=== PATIENT | female | born 1970 | race Caucasian/White ===

== ENCOUNTER → 2016-10-07 | Outpatient (CLI) | payer BC ==
--- NOTE | 2016-10-07 10:59 | RADIOLOGY REPORT (SQ) ---
EXAM DESCRIPTION: ANKLE RIGHT COMPLETE COMPLETED DATE/TIME: 10/07/2016 10:46 am REASON FOR STUDY: PAIN IN RIGHT ANKLE AND JOINTS OF RIGHT FOOT M25.571 PAIN IN RIGHT ANKLE AND JOIN TS OF RIGHT FOOT COMPARISON: None. NUMBER OF VIEWS: Three views. TECHNIQUE: AP, lateral, and oblique radiographic images acquired of the right ankle. LIMITATIONS: None. FINDINGS: MINERALIZATION: Normal. BONES: No acute fracture or dislocation. There are 2 long screws in the medial malleolus and there i s a compression plate on the distal fibula. JOINTS: There is subchondral sclerosis in the tibiotalar joint. SOFT TISSUES: No soft tissue swelling. No foreign body. OTHER: No other significant finding. 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 TECHNICAL DOCUMENTATION: JOB ID: [id number] [employer]- All Rights Reserved
--- NOTE | 2016-10-07 11:00 | RADIOLOGY REPORT (SQ) ---
EXAM DESCRIPTION: FOOT RIGHT COMPLETE COMPLETED DATE/TIME: 10/07/2016 10:46 am REASON FOR STUDY: PAIN IN RIGHT ANKLE AND JOINTS OF RIGHT FOOT M25.571 PAIN IN RIGHT ANKLE AND JOIN TS OF RIGHT FOOT COMPARISON: None. NUMBER OF VIEWS: Three views. TECHNIQUE: AP, lateral and oblique radiographic images acquired of the right foot. LIMITATIONS: None. FINDINGS: MINERALIZATION: Normal. BONES: No acute fracture or dislocation. No worrisome bone lesions. JOINTS: There is mild hallux valgus. Once again mild posttraumatic degenerative changes seen in the tibiotalar joint. SOFT TISSUES: No soft tissue swelling. No foreign body. OTHER: No other significant finding. IMPRESSION: Mild hallux valgus. Tibiotalar degenerative changes. No acute abnormality. TECHNICAL DOCUMENTATION: JOB ID: [id number] [employer]- All Rights Reserved
== END ==
LOC: OD 09:23
PROVIDERS: ATTEND Physician Assistant
DX: M25.571 Pain in right ankle and joints of right foot (principal)

== ENCOUNTER 2017-01-06 15:25 | Observation (INO) | payer BC ==
--- NOTE | 2017-01-06 16:08 | ER Document Report ---
ED General - General Chief Complaint: Numbness of Face Stated Complaint: FACIAL NUMBNESS Time Seen by Provider: 01/06/17 15:42 Mode of Arrival: Ambulatory Information source: Patient Notes: 46-year-old female with history of 7 previous TIAs 1 CVA presents with sudden left facial droop and numbness sensation. Patient denies any extremity weakness but admits to numbness in the left hand. TRAVEL OUTSIDE OF THE [place] IN LAST 30 DAYS: No - HPI Onset: Just prior to arrival Onset/Duration: Sudden Quality of pain: No pain Severity: Mild Pain Level: Denies Associated symptoms: Weakness, Other Exacerbated by: Denies Relieved by: Denies Similar symptoms previously: Yes Recently seen / treated by doctor: Yes - Related Data Allergies/Adverse Reactions: nitroglycerin [Nitroglycerin] Allergy (Intermediate, Verified 01/06/17 15:32) promethazine HCl [From Phenergan] Allergy (Intermediate, Verified 01/06/17 15:32 ) pseudoephedrine HCl [From Sudafed] Allergy (Intermediate, Verified 01/06/17 15: 32) Home Medications: Current Home Medications Fenofibrate 160 mg PO DAILY 01/06/17 [History] Gabapentin [Neurontin] 600 mg PO PRN PRN 01/06/17 [History] Ibuprofen 800 mg PO PRN PRN 01/06/17 [History] L.acidoph,Paracasei, B.lactis [Probiotic] 1 each PO DAILY 01/06/17 [History] Liraglutide [Victoza 2-Michele] 1.8 mg SQ DAILY 01/06/17 [History] Past Medical History - Social History Smoking Status: Never Smoker Cigarette use (# per day): No Chew tobacco use (# tins/day): No Smoking Education Provided: No Family History: Reviewed & Not Pertinent Endocrine Medical History: Reports: Hx Diabetes Mellitus Type 2 Renal/ Medical History: Denies: Hx Peritoneal Dialysis GI Medical History: Reports: Hx Gastroesophageal Reflux Disease, Hx Irritable Bowel. Denies: Hx Crohn's Disease, Hx Diverticulitis, Hx Ulcerative Colitis Past Surgical History: Reports: Hx Bowel Surgery - Hernia repair, endoscopic procedures to diagnose endometriosis, Hx Cholecystectomy, Hx Genitourinary Surgery, Hx Hysterectomy, Hx Orthopedic Surgery - spinal fusion - Immunizations Immunizations up to date: Yes Hx Diphtheria, Pertussis, Tetanus Vaccination: Yes Review of Systems - Review of Systems Notes: REVIEW OF SYSTEMS: CONSTITUTIONAL : Denies fever, chills, or sweats. Denies recent illness. EENT: Admits to left facial droop CARDIOVASCULAR: Denies chest pain. Denies palpitations or racing or irregular heart beat. Denies ankle edema. RESPIRATORY: Denies cough, cold, or chest congestion. Denies shortness of breath, difficulty breathing, or wheezing. GASTROINTESTINAL: Denies abdominal pain or distention. Denies nausea, vomiting , or diarrhea. Denies blood in vomitus, stools, or per rectum. Denies black, tarry stools. Denies constipation. GENITOURINARY: Denies difficulty urinating, painful urination, burning, frequency, blood in urine, or discharge. FEMALE GENITOURINARY: Denies vaginal bleeding, heavy or abnormal periods, irregular periods. Denies vaginal discharge or odor. MUSCULOSKELETAL: Denies back or neck pain or stiffness. Denies joint pain or swelling. SKIN: Denies rash, lesions or sores. HEMATOLOGIC : Denies easy bruising or bleeding. LYMPHATIC: Denies swollen, enlarged glands. NEUROLOGICAL: Admits to numbness paresthesia PSYCHIATRIC: Denies anxiety or stress. Denies depression, suicidal ideation, or homicidal ideation. ALL OTHER SYSTEMS REVIEWED AND NEGATIVE. PHYSICAL EXAMINATION: GENERAL: Well-appearing, well-nourished and in no acute distress. HEAD: Atraumatic, normocephalic. EYES: Pupils equal round and reactive to light, extraocular movements intact, conjunctiva are normal. ENT: Nares patent, oropharynx clear without exudates. Moist mucous membranes. NECK: Normal range of motion, supple without lymphadenopathy LUNGS: Breath sounds clear to auscultation bilaterally and equal. No wheezes rales or rhonchi. HEART: Regular rate and rhythm without murmurs ABDOMEN: Soft, nontender, nondistended abdomen. No guarding, no rebound. No masses appreciated. Female : deferred Musculoskeletal: Normal range of motion, no pitting or edema. No cyanosis. NEUROLOGICAL: Cranial nerves grossly intact. Normal speech, normal gait. Normal sensory, motor exams NIH score 1 PSYCH: Normal mood, normal affect. SKIN: Warm, Dry, normal turgor, no rashes or lesions noted. Dictation was performed using [employer] recognition software Physical Exam - Vital signs Vitals: Temp Pulse Resp BP Pulse Ox 99.0 F 125 H 21 H 164/95 H 100 01/06/17 15:27 01/06/17 15:27 01/06/17 15:27 01/06/17 15:27 01/06/17 15:27 Course - Re-evaluation Re-evalutation: 01/06/17 16:08 Patient has an NIH score 1 new subjective paresthesia, she does not meet criteria for thrombolytics as her symptoms have improved 01/06/17 16:58 Patient will be observed in the hospital given her symptoms extensive history - Vital Signs Vital signs: Temp Pulse Resp BP Pulse Ox 97.6 F 97 16 149/99 H 99 01/06/17 16:15 01/06/17 16:33 01/06/17 16:33 01/06/17 16:33 01/06/17 16:33 - Laboratory Result Diagrams: 01/06/17 16:00 01/06/17 16:00 Laboratory results interpreted by me: 01/06/17 16:00 Glucose 136 H Calcium 10.5 H - Diagnostic Test Radiology reviewed: Image reviewed, Reports reviewed - EKG Interpretation by Wy EKG shows normal: Sinus rhythm, Otis, Intervals, QRS Complexes Rate: Tachycardia Discharge - Discharge Clinical Impression: Left facial numbness Condition: Stable Disposition: ADMITTED OBSERVATION Admitting Provider: Hospitalist Unit Admitted: Telemetry
--- NOTE | 2017-01-06 16:14 | RADIOLOGY REPORT (SQ) ---
EXAM DESCRIPTION: CT HEAD WITHOUT COMPLETED DATE/TIME: 01/06/2017 3:52 pm REASON FOR STUDY: left facial droop COMPARISON: MRI brain 02/20/2015 CT brain 02/20/2015 TECHNIQUE: Axial images acquired through the brain without intravenous contrast. Images reviewed wi th bone, brain and subdural windows. Images stored on PACS. All CT scanners at this facility use dose modulation, iterative reconstruction, and/or weight based d osing when appropriate to reduce radiation dose to as low as reasonably achievable (ALARA). [facility]: Dose Right [facility]: CareDose [facility]: Dose Right [facility]: Teradose 4D [facility]: Smart Genomas RADIATION DOSE: Up-to-date CT equipment and radiation dose reduction techniques were employed. CTDIv ol: 64.6 mGy. DLP: 1034 mGy-cm. mGy. LIMITATIONS: None. FINDINGS: VENTRICLES: Normal size and contour. CEREBRUM: No masses. No hemorrhage. No midline shift. No evidence for acute infarction. Normal gra y/white matter differentiation. No areas of low density in the white matter. CEREBELLUM: No masses. No hemorrhage. No alteration of density. No evidence for acute infarction. EXTRAAXIAL SPACES: No fluid collections. No masses. ORBITS AND GLOBE: No intra- or extraconal masses. Normal contour of globe without masses. CALVARIUM: No fracture. PARANASAL SINUSES: No fluid or mucosal thickening. SOFT TISSUES: No mass or hematoma. OTHER: No other significant finding. IMPRESSION: NORMAL BRAIN CT WITHOUT CONTRAST. EVIDENCE OF ACUTE STROKE: NO. COMMENT: Pertinent findings on the imaging study reported as a CRITICAL RESULT to IMANI RIBEIRO DO at16:04 on 01/06/2017. Category of Critical Result: CT code stroke Quality ID # [id number]: Final reports with documentation of one or more dose reduction techniques (e.g., Au tomated exposure control, adjustment of the mA and/or kV according to patient size, use of iterative reconstruction technique) TECHNICAL DOCUMENTATION: JOB ID: [id number]- All Rights Reserved
[2017-01-06 16:15] LABS: ABSOLUTE LYMPHOCYTES (AUTO) 1.7 10^3/uL (0.5-4.7); ABSOLUTE MONOCYTES (AUTO) 0.4 10^3/uL (0.1-1.4); ABSOLUTE NEUT (AUTO) 3.1 10^3/uL (1.7-8.2); BASOPHILS % (AUTO) 0.3 % (0-2); EOSINOPHILS % (AUTO) 0.5 % (0-6); HEMATOCRIT 41.4 % (36.0-47.0); HEMOGLOBIN 13.8 g/dL (12.0-15.5); LYMPHOCYTES % (AUTO) 32.6 % (13-45); MEAN CORPUSCULAR HEMOGLOBIN 28.7 pg (27.0-33.4); MEAN CORPUSCULAR HGB CONC 33.3 g/dL (32.0-36.0); MEAN CORPUSCULAR VOLUME 86 fl (80-97); MONOCYTES % (AUTO) 7.5 % (3-13); PROTHROMBIN TIME 12.8 SEC (11.4-15.4); RED CELL DISTRIBUTION WIDTH 13.1 % (11.5-14.0); SEGMENTED NEUTROPHILS % (AUTO) 59.1 % (42-78); WHITE BLOOD COUNT 5.3 10^3/uL (4.0-10.5)
[2017-01-06 16:16] LABS: PARTIAL THROMBOPLASTIN TIME 29.6 SEC (23.5-35.8)
--- NOTE | 2017-01-06 16:24 | RADIOLOGY REPORT (SQ) ---
EXAM DESCRIPTION: CHEST SINGLE VIEW COMPLETED DATE/TIME: 01/06/2017 4:06 pm REASON FOR STUDY: left facial droop COMPARISON: 02/20/2015 EXAM PARAMETERS: NUMBER OF VIEWS: One view. TECHNIQUE: Single frontal radiographic view of the chest acquired. RADIATION DOSE: NA LIMITATIONS: None. FINDINGS: LUNGS AND PLEURA: No opacities, masses or pneumothorax. No pleural effusion. MEDIASTINUM AND HILAR STRUCTURES: No masses. Contour normal. HEART AND VASCULAR STRUCTURES: Heart normal in size. Normal vasculature. BONES: No acute findings. HARDWARE: None in the chest. OTHER: No other significant finding. IMPRESSION: NO ACUTE RADIOGRAPHIC FINDING IN THE CHEST. TECHNICAL DOCUMENTATION: JOB ID: [id number]
[2017-01-06 16:30] LABS: ALANINE AMINOTRANSFERASE 30 U/L (9-52); ALBUMIN 4.4 g/dL (3.5-5.0); ALKALINE PHOSPHATASE 76 U/L (38-126); ANION GAP 14 (5-19); ASPARTATE AMINO TRANSFERASE 24 U/L (14-36); BILIRUBIN,DIRECT 0.3 mg/dL (0.0-0.4); BILIRUBIN,TOTAL 0.4 mg/dL (0.2-1.3); BLOOD UREA NITROGEN 10 mg/dL (7-20); CALCIUM 10.5 mg/dL (8.4-10.2); CARBON DIOXIDE 28 mmol/L (22-30); CHLORIDE 102 mmol/L (98-107); CREATINE KINASE 72 U/L (30-135); CREATININE RESULT 0.63 mg/dL (0.52-1.25); GLUCOSE 136 mg/dL (75-110); POTASSIUM 4.1 mmol/L (3.6-5.0); SODIUM 143.7 mmol/L (137-145); TOTAL PROTEIN 7.4 g/dL (6.3-8.2)
[2017-01-06 16:38] LABS: CREATINE KINASE MB 1.24 ng/mL (<4.55)
[2017-01-06 16:40] LABS: TROPONIN I < 0.012 ng/mL
[2017-01-06] MEDS ORDERED: ONDANSETRON 4 MG TAB.RAPDIS PO PRN (17:26)
[2017-01-06] MEDS ORDERED: ACETAMINOPHEN 325 MG TABLET PO PRN (17:26)
[2017-01-06] MEDS ORDERED: DEXTROSE 50%-WATER 25 GM/50 ML DISP.SYRIN IV PRN ×2 (17:31)
[2017-01-06] MEDS ORDERED: DEXTROSE 40% GEL 15 GM TUBE PO PRN ×2 (17:31)
[2017-01-06] MEDS ORDERED: INSULIN LISPRO 100 UNIT/ML 3 ML VIAL SUBCUT PRN (17:31)
[2017-01-06] MEDS ORDERED: GLUCAGON,HUMAN RECOMB 1 MG INJ IM PRN (17:31)
[2017-01-06] MEDS ORDERED: (PENDING PHARMACY ID) (Oxycodone Hcl/Acetaminophen [Percocet 10-325 Mg Tablet] 1 EACH) PO PRN (17:31)
--- NOTE | 2017-01-06 17:40 | PDOC H&P ---
History of Present Illness Admission Date/PCP: 01/06/17 17:03 Patient complains of: Left facial numbness History of Present Illness: TWAN MCCLURE is a 46 year old female who reports having had previous TIAs and a CVA who presents with left-sided facial numbness that started today. She reports that her entire left side of her face is numb but denies any pain. She denies any change in her vision denies any weakness in her arms or legs. She denies any slurred speech or dysarthria. Denies any dysphasia. The patient is a diabetic but has not taken any aspirin prior to today. The patient does have a history of hypertriglyceridemia. Patient however does not smoke. The patient denies any fevers or chills. Denies any visual changes. Patient had a head CT emergency room which shows no acute event. Patient is admitted for workup of TIA. Past Medical History Cardiac Medical History: Reports: Hyperlipidema Pulmonary Medical History: Reports: None EENT Medical History: Reports: None Neurological Medical History: Reports: Ischemic CVA Endocrine Medical History: Reports: Diabetes Mellitus Type 2 Renal/ Medical History: Reports: None Malignancy Medical History: Reports: Cervical Cancer GI Medical History: Reports: Gastroesophageal Reflux Disease, Other - Irritable bowel disease Musculoskeltal Medical History: Reports: Other - History of lumbar spine fusion Skin Medical History: Reports: None Psychiatric Medical History: Reports: None Traumatic Medical History: Reports: None Hematology: Reports: None Infectious Medical History: Reports: None Past Surgical History Past Surgical History: Reports: Cholecystectomy, Hysterectomy, Orthopedic Surgery - spinal fusion, Tubal Ligation Social History Information Source: Patient Lives with: Family Smoking Status: Never Smoker Frequency of Alcohol Use: None Hx Recreational Drug Use: No Drugs: None Hx Prescription Drug Abuse: No - Advance Directive Resuscitation Status: Full Code Surrogate healthcare decision maker:: Her Family History Family History: Mother is 60 and alive. she has peripheral vascular disease and has also had colon cancer. Father is 69 and alive. He has a history of alcohol abuse. Parental Family History Reviewed: Yes Children Family History Reviewed: No Sibling(s) Family History Reviewed.: No Medication/Allergy Home Medications: Metformin HCl [Glucophage 500 Mg Tablet] 500 mg PO BID 02/24/13 Oxycodone HCl/Acetaminophen [Percocet 10-325 Mg Tablet] 1 each PO PRN PRN #10 tablet 02/24/13 Fenofibrate 160 mg PO DAILY 01/06/17 Gabapentin [Neurontin] 600 mg PO PRN PRN 01/06/17 Ibuprofen 800 mg PO PRN PRN 01/06/17 L.acidoph,Paracasei, B.lactis [Probiotic] 1 each PO DAILY 01/06/17 Liraglutide [Victoza 2-Michele] 1.8 mg SQ DAILY 01/06/17 Allergies/Adverse Reactions: nitroglycerin [Nitroglycerin] Allergy (Intermediate, Verified 01/06/17 15:32) promethazine HCl [From Phenergan] Allergy (Intermediate, Verified 01/06/17 15:32 ) pseudoephedrine HCl [From Sudafed] Allergy (Intermediate, Verified 01/06/17 15: 32) Review of Systems Constitutional: ABSENT: chills, fever(s), headache(s), weight gain, weight loss Eyes: ABSENT: visual disturbances Ears: ABSENT: hearing changes Cardiovascular: ABSENT: chest pain, dyspnea on exertion, edema, orthropnea, palpitations Respiratory: ABSENT: cough, hemoptysis Gastrointestinal: PRESENT: constipation. ABSENT: abdominal pain, diarrhea, hematemesis, hematochezia, nausea, vomiting Genitourinary: ABSENT: dysuria, hematuria Musculoskeletal: PRESENT: back pain Integumentary: ABSENT: rash, wounds Neurological: PRESENT: as per HPI Psychiatric: ABSENT: anxiety, depression Endocrine: ABSENT: cold intolerance, heat intolerance, polydipsia, polyuria Hematologic/Lymphatic: ABSENT: easy bleeding, easy bruising Physical Exam Vital Signs: Temp Pulse Resp BP Pulse Ox 97.6 F 97 16 149/99 H 99 01/06/17 16:15 01/06/17 16:33 01/06/17 16:33 01/06/17 16:33 01/06/17 16:33 General appearance: PRESENT: no acute distress, obese Head exam: PRESENT: atraumatic, normocephalic Eye exam: PRESENT: conjunctiva pink, EOMI, PERRLA. ABSENT: scleral icterus Ear exam: PRESENT: normal external ear exam Mouth exam: PRESENT: moist, tongue midline Neck exam: ABSENT: carotid bruit, JVD, lymphadenopathy, thyromegaly Respiratory exam: PRESENT: clear to auscultation jameel. ABSENT: rales, rhonchi, wheezes Cardiovascular exam: PRESENT: RRR. ABSENT: diastolic murmur, rubs, systolic murmur Pulses: PRESENT: normal dorsalis pedis pul Vascular exam: PRESENT: normal capillary refill GI/Abdominal exam: PRESENT: normal bowel sounds, soft. ABSENT: distended, guarding, mass, organolmegaly, rebound, tenderness Rectal exam: PRESENT: deferred Extremities exam: ABSENT: calf tenderness, clubbing, pedal edema Neurological exam: PRESENT: alert, awake, oriented to person, oriented to place , oriented to time, oriented to situation. ABSENT: CN II-XII grossly intact - Patient has decreased light touch on the left face., motor sensory deficit Psychiatric exam: PRESENT: appropriate affect Skin exam: PRESENT: dry, intact, warm. ABSENT: cyanosis, rash Results Impressions: Chest X-Ray 01/06/17 15:42 IMPRESSION: NO ACUTE RADIOGRAPHIC FINDING IN THE CHEST. Head CT 01/06/17 15:42 IMPRESSION: NORMAL BRAIN CT WITHOUT CONTRAST. EVIDENCE OF ACUTE STROKE: NO. Assessment & Plan - Diagnosis (1) TIA (transient ischemic attack) Is this a current diagnosis for this admission?: Yes Plan: Patient reports having previous TIA symptoms as well as a CVA by her report. Will get an MRI and carotid Dopplers. The patient has not been taking aspirin and we will start on that. We will also add on a statin. She has been on fenofibrate because of her hypertriglyceridemia. Will also do serial neurological exams. (2) Diabetes mellitus Is this a current diagnosis for this admission?: Yes Plan: We will hold her oral agents and cover with sliding scale insulin. (3) Hyperlipidemia Is this a current diagnosis for this admission?: Yes Plan: Continue with fenofibrate. Will add on a statin. (4) Gastroesophageal reflux disease Is this a current diagnosis for this admission?: Yes (5) Irritable bowel syndrome Is this a current diagnosis for this admission?: Yes - Time Time Spent: 50 to 70 Minutes - Plan Summary Plan Summary: We will admit as an observation as I anticipate this require less than a 2 midnight hospital stay.
--- NOTE | 2017-01-06 18:50 | EKG REPORT ---
SEVERITY:- OTHERWISE NORMAL ECG - SINUS TACHYCARDIA BORDERLINE LEFT AXIS DEVIATION : Confirmed by: Joseph Dominguez MD 06-Jan-2017 18:49:13
[2017-01-06] MEDS ORDERED: GABAPENTIN 300 MG CAPSULE PO PRN (19:28)
[2017-01-06] MEDS ORDERED: INFLUENZA ADLT QUAD (36MOS+) 2017-18 VAC 0.5 ML SYR IM PRN (20:16)
[2017-01-06] MEDS: OXYCODONE-ACETAMINOPHEN 5-325 MG TABLET PO PRN (21:20)
[2017-01-06] MEDS: IBUPROFEN 800 MG TABLET PO PRN (21:20)
[2017-01-06] MEDS: OXYCODONE HCL IR 5 MG TABLET PO PRN (21:21)
[2017-01-06] MEDS ORDERED: ATORVASTATIN CALCIUM 40 MG TABLET PO SCH (22:00)
--- NOTE | 2017-01-06 22:35 | RADIOLOGY REPORT (SQ) ---
EXAM DESCRIPTION: MRI HEAD WITHOUT COMPLETED DATE/TIME: 01/06/2017 9:01 pm REASON FOR STUDY: acute neurologic syndrome COMPARISON: None. TECHNIQUE: Multiplanar imaging includes non-contrasted T1, T2, FLAIR, and diffusion with ADC map seq uences. Images stored on PACS. LIMITATIONS: None. FINDINGS: ANATOMY: No anomalies. Normal vascular flow voids. Pituitary fossa normal. CSF SPACES: Normal in size and contour. No hemorrhage. CEREBRUM: Sulci and gyri normal in size and contour. Age-appropriate white matter signal on FLAIR im aging. No evidence of hemorrhage, mass, or extraaxial fluid collection. POSTERIOR FOSSA: No signal alteration. No hemorrhage. No edema, masses or mass effect. Internal gigi tory canals, cerebello-pontine angles, mastoids normal. DIFFUSION IMAGING: Negative for acute or sub-acute infarction. ORBITS: No masses. Globes normal. PARANASAL SINUSES: No fluid levels. Minimal mucosal thickening in the left maxillary sinus. . OTHER: No other significant finding. IMPRESSION: Negative for acute or sub-acute infarction. Age-appropriate exam. EVIDENCE OF ACUTE STROKE: NO. TECHNICAL DOCUMENTATION: JOB ID: [id number] [employer]- All Rights Reserved
[2017-01-07] MEDS ORDERED: (PENDING PHARMACY ID) (Liraglutide [Victoza 2-Pak] 1.8 MG) SQ SCH (10:00)
[2017-01-07] MEDS ORDERED: ASPIRIN 325 MG TABLET, ENT COATED PO SCH (10:00)
[2017-01-07] MEDS ORDERED: (PENDING PHARMACY ID) (Fenofibrate [Fenofibrate] 160 MG) PO SCH (10:00)
[2017-01-07] MEDS ORDERED: LACTOBACILLUS ACIDOPHILUS 250 MG TAB PO SCH (10:00)
[2017-01-07] MEDS ORDERED: (PENDING PHARMACY ID) (L.Acidoph,Paracasei, B.Lactis [Probiotic] 1 EACH) PO SCH (10:00)
[2017-01-07] MEDS ORDERED: FENOFIBRATE NANOCRYSTALLIZED 145 MG TABLET PO SCH (10:00)
[2017-01-07] MEDS: IBUPROFEN 800 MG TABLET PO PRN (10:30)
[2017-01-07] MEDS: OXYCODONE-ACETAMINOPHEN 5-325 MG TABLET PO PRN (10:30)
[2017-01-07] MEDS: OXYCODONE HCL IR 5 MG TABLET PO PRN (10:35)
[2017-01-07] MEDS ORDERED: ONDANSETRON 4 MG TAB.RAPDIS PO PRN (11:00)
[2017-01-07] MEDS ORDERED: INFLUENZA ADLT QUAD (36MOS+) 2017-18 VAC 0.5 ML SYR IM PRN (11:00)
--- NOTE | 2017-01-07 11:53 | RADIOLOGY REPORT (SQ) ---
EXAM DESCRIPTION: CAROTID DOPPLER COMPLETED DATE/TIME: 01/07/2017 10:43 am REASON FOR STUDY: acute neurologic syndrome COMPARISON: MRI brain 01/06/2017, CT brain 01/06/2017 TECHNIQUE: Grayscale ultrasound, Doppler velocity and spectra, and color Doppler images acquired of the extra-cranial carotid and vertebral arteries. Images stored on PACS. LIMITATIONS: None. FINDINGS: RIGHT CAROTID CCA Velocities: Within normal limits. ICA Velocities Peak systolic 0.59 m/s. End diastolic 0.20 m/s. Proximal ICA/CCA peak systolic ratio 1.1. Spectra normal. No significant plaque. LEFT CAROTID CCA Velocities: Within normal limits. ICA Velocities Peak systolic 0.85 m/s. End diastolic 0.23 m/s. Proximal ICA/CCA peak systolic ratio 0.9. Spectra normal. No significant plaque. VERTEBRAL ARTERIES: Antegrade flow. Normal waveforms. SUBCLAVIAN ARTERIES: Not evaluated OTHER: No other significant finding. IMPRESSION: NO HEMODYNAMICALLY SIGNIFICANT STENOSIS. COMMENT: Quality ID #[id number]: Velocity criteria are extrapolated from the diameter data as defined by t he Society of Radiologists in Ultrasound Consensus Conference. Radiology 2003: 229; 340-346. TECHNICAL DOCUMENTATION: JOB ID: [id number] [employer]- All Rights Reserved
[2017-01-07 12:17] VITALS: BP 145/89
--- NOTE | 2017-01-07 13:27 | PDOC DISCHARGE SUMMARY ---
General - Admit/Disc Date/PCP Admission Date/Primary Care Provider: 01/06/17 17:26 Discharge Date: 01/07/17 - Discharge Diagnosis (1) TIA (transient ischemic attack) Is this a current diagnosis for this admission?: Yes Summary: Normal MRI and normal carotid Doppler. Patient is being started on aspirin. She was not put on Lipitor because she is already on fenofibrate for hypertriglyceridemia. (2) Diabetes mellitus Is this a current diagnosis for this admission?: Yes (3) Hyperlipidemia Is this a current diagnosis for this admission?: Yes (4) Gastroesophageal reflux disease Is this a current diagnosis for this admission?: Yes (5) Irritable bowel syndrome Is this a current diagnosis for this admission?: Yes - Additional Information Resuscitation Status: Full Code Discharge Diet: Diabetic Discharge Activity: Activity As Tolerated Home Medications: Fenofibrate 160 mg PO DAILY 01/06/17 Fexofenadine HCl [Luiza] 60 mg PO DAILY 01/06/17 Fluticasone Propionate [Flonase Allergy Relief] 2 spray NASL DAILYP PRN Gabapentin [Neurontin] 600 mg PO Q6HP PRN 01/06/17 Ibuprofen 800 mg PO Q8HP PRN 01/06/17 L.acidoph,Paracasei, B.lactis [Probiotic] 1 each PO DAILY 01/06/17 Liraglutide [Victoza 2-Michele] 1.8 mg SQ DAILY 01/06/17 Metformin HCl [Metformin HCl ER] 1,000 mg PO Q12 01/06/17 Oxycodone HCl/Acetaminophen [Percocet 10-325 mg Tablet] 1 tab PO Q6HP PRN Phentermine HCl [Adipex-P] 37.5 mg PO DAILY 01/06/17 Psyllium Husk [Metamucil] 0.52 gm PO DAILY 01/06/17 Aspirin [Ecotrin 325 mg EC Tablet] 325 mg PO DAILY tabec 01/07/17 Flu Vacc [id number] 36Mos Up/Pf [Fluzone Adlt Quad [id number] Vac 0.5 ml Syr] 0.5 ml IM .DISCHARGE PRN disp.syrin 01/07/17 History of Present Illness History of Present Illness: TWAN MCCLURE is a 46 year old female who reports having had previous TIAs and a CVA who presents with left-sided facial numbness that started today. She reports that her entire left side of her face is numb but denies any pain. She denies any change in her vision denies any weakness in her arms or legs. She denies any slurred speech or dysarthria. Denies any dysphasia. The patient is a diabetic but has not taken any aspirin prior to today. The patient does have a history of hypertriglyceridemia. Patient however does not smoke. The patient denies any fevers or chills. Denies any visual changes. Patient had a head CT emergency room which shows no acute event. Patient is admitted for workup of TIA. Hospital Course Hospital Course: 46-year-old female who presented with left facial numbness suspicious for a TIA. The patient had not been taking aspirin prior to admission. The patient had a head CT that was unremarkable. She was admitted and monitored on telemetry. She had no cardiac arrhythmias. Brain MRI showed no acute event. Carotid Dopplers also were normal. Given the fact that she did not have any cardiac arrhythmias echocardiogram was not obtained. Patient had been started on aspirin and will be sent home on aspirin as she has had complete resolution of her symptoms. Patient will follow up with her primary care in 1-2 weeks. She was already taking fenofibrate for her hypertriglyceridemia and she was not started on a statin because of that. Physical Exam Vital Signs: Temp Pulse Resp BP Pulse Ox 97.7 F 98 20 145/89 H 98 01/07/17 12:37 01/07/17 12:37 01/07/17 12:37 01/07/17 12:00 01/07/17 12:37 Intake & Output 01/06/17 01/07/17 01/08/17 06:59 06:59 06:59 Intake Total 1545 Balance 1545 Weight 93.3 kg General appearance: PRESENT: no acute distress, well-developed, well-nourished Head exam: PRESENT: atraumatic, normocephalic Eye exam: PRESENT: conjunctiva pink, EOMI, PERRLA. ABSENT: scleral icterus Mouth exam: PRESENT: moist, tongue midline Neck exam: ABSENT: JVD Respiratory exam: PRESENT: clear to auscultation jameel. ABSENT: rales, rhonchi, wheezes Cardiovascular exam: PRESENT: RRR. ABSENT: diastolic murmur, rubs, systolic murmur GI/Abdominal exam: PRESENT: normal bowel sounds, soft. ABSENT: distended, guarding, mass, organolmegaly, rebound, tenderness Extremities exam: ABSENT: calf tenderness, clubbing, pedal edema Neurological exam: PRESENT: alert, awake, oriented to person, oriented to place , oriented to time, oriented to situation, CN II-XII grossly intact. ABSENT: motor sensory deficit Psychiatric exam: PRESENT: appropriate affect Skin exam: PRESENT: dry, intact, warm. ABSENT: cyanosis, rash Results Impressions: Chest X-Ray 01/06/17 15:42 IMPRESSION: NO ACUTE RADIOGRAPHIC FINDING IN THE CHEST. Head CT 01/06/17 15:42 IMPRESSION: NORMAL BRAIN CT WITHOUT CONTRAST. EVIDENCE OF ACUTE STROKE: NO. Head MRI 01/06/17 17:30 IMPRESSION: Negative for acute or sub-acute infarction. Age-appropriate exam. EVIDENCE OF ACUTE STROKE: NO. Carotid Doppler Study 01/07/17 00:00 IMPRESSION: NO HEMODYNAMICALLY SIGNIFICANT STENOSIS. Qualifiers PATEINT BEING DISCHARGED WITH ANY OF THE FOLLOWING DIAGNOSIS?: No Plan Discharge Plan: Patient is discharged home in stable condition. Will follow up with her primary care doctor in 2 weeks. Time Spent: Less than 30 Minutes
== END 2017-01-07 18:51 | disposition home or self-care (01) ==
LOC: ER 15:25 → EH 17:03 → UNDOADMOB 17:03 → EH 17:26 → 3N 19:00
PROVIDERS: ADMIT Internal Medicine; ATTEND Internal Medicine
DX: G45.9 Transient cerebral ischemic attack, unspecified (principal); E11.9 Type 2 diabetes mellitus without complications; E78.1 Pure hyperglyceridemia; K21.9 Gastro-esophageal reflux disease without esophagitis; K58.9 Irritable bowel syndrome, unspecified; K59.00 Constipation, unspecified; M54.9 Dorsalgia, unspecified; R29.701 NIHSS score 1; R00.0 Tachycardia, unspecified; Z79.899 Other long term (current) drug therapy; Z79.82 Long term (current) use of aspirin; Z79.84 Long term (current) use of oral hypoglycemic drugs; Z85.41 Personal history of malignant neoplasm of cervix uteri; Z90.49 Acquired absence of other specified parts of digestive tract; Z98.1 Arthrodesis status; Z98.51 Tubal ligation status; Z90.710 Acquired absence of both cervix and uterus; Z84.89 Family history of other specified conditions; Z86.73 Personal history of transient ischemic attack (TIA), and cerebral infarction without residual deficits
CPT/HCPCS: 93005; 99285; 36415; 82553; 82962 ×2; 82550; 85025; 85610; 85730; 80053; 84484; 93880; 70551; 71010; 70450; 93010; J1815; J3490 ×3

== ENCOUNTER 2018-02-12 10:38 | Emergency (ER) | payer BC ==
[2018-02-12] MEDS ORDERED: NORMAL SALINE 1000 ML 1,000 ML IV ONE (11:04)
--- NOTE | 2018-02-12 11:05 | ER Document Report ---
ED Medical Screen (RME) - General Chief Complaint: Rectal Bleeding Stated Complaint: ANAL BLEEDING Time Seen by Provider: 02/12/18 10:52 Notes: 47-year-old female to emergency department for evaluation of rectal bleeding. States that she woke up this morning and felt pressure in the rectum. Had a large amount of blood. Continues to have bleeding. Having a lot of burning in the rectum. Is a diabetic but blood sugars have been good. Heart is racing this morning as well. I have greeted and performed a rapid initial assessment of this patient. A comprehensive ED assessment and evaluation of the patient, analysis of test results and completion of the medical decision making process will be conducted by additional ED providers. TRAVEL OUTSIDE OF THE [place] IN LAST 30 DAYS: No - Related Data Allergies/Adverse Reactions: nitroglycerin [Nitroglycerin] Allergy (Intermediate, Verified 02/12/18 11:02) promethazine HCl [From Phenergan] Allergy (Intermediate, Verified 02/12/18 11:02 ) pseudoephedrine HCl [From Sudafed] Allergy (Intermediate, Verified 02/12/18 11: 02) Past Medical History - Social History Chew tobacco use (# tins/day): No Frequency of alcohol use: Rare Drug Abuse: None - Past Medical History Cardiac Medical History: Reports: Hx Hypercholesterolemia Endocrine Medical History: Reports: Hx Diabetes Mellitus Type 2 Renal/ Medical History: Denies: Hx Peritoneal Dialysis Malignancy Medical History: Reports: Hx Cervical Cancer GI Medical History: Reports: Hx Gastroesophageal Reflux Disease, Hx Irritable Bowel. Denies: Hx Crohn's Disease, Hx Diverticulitis, Hx Ulcerative Colitis Psychiatric Medical History: Reports: Hx Depression Past Surgical History: Reports: Hx Bowel Surgery - Hernia repair, endoscopic procedures to diagnose endometriosis, Hx Cholecystectomy, Hx Genitourinary Surgery, Hx Gynecologic Surgery - cervical cancer, cystocele, ruptured ovarian cyst, Hx Hysterectomy, Hx Orthopedic Surgery - spinal fusion, Hx Tubal Ligation - Immunizations Immunizations up to date: Yes Hx Diphtheria, Pertussis, Tetanus Vaccination: Yes History of Influenza Vaccine for 12/2016 - 05/2017 Season: No Review of Systems - Review of Systems Notes: View of systems positive for the following: Rectal bleeding, rectal pain and burning Physical Exam - Vital signs Vitals: Temp Pulse Resp BP Pulse Ox 98.0 F 125 H 20 161/87 H 100 02/12/18 10:43 02/12/18 10:43 02/12/18 10:43 02/12/18 10:43 02/12/18 10:43 Interpretation: Tachycardic - Abdominal Inspection: Normal Distension: No distension Bowel sounds: Normal Tenderness: Tender - Lower abdominal tenderness Organomegaly: No organomegaly Course - Vital Signs Vital signs: Temp Pulse Resp BP Pulse Ox 98.0 F 125 H 20 161/87 H 100 02/12/18 10:43 02/12/18 10:43 02/12/18 10:43 02/12/18 10:43 02/12/18 10:43
[2018-02-12 11:51] LABS: ABSOLUTE LYMPHOCYTES (AUTO) 1.9 10^3/uL (0.5-4.7); ABSOLUTE MONOCYTES (AUTO) 0.4 10^3/uL (0.1-1.4); ABSOLUTE NEUT (AUTO) 4.1 10^3/uL (1.7-8.2); BASOPHILS % (AUTO) 0.5 % (0-2); EOSINOPHILS % (AUTO) 0.6 % (0-6); HEMATOCRIT 39.9 % (36.0-47.0); HEMOGLOBIN 13.5 g/dL (12.0-15.5); LYMPHOCYTES % (AUTO) 28.6 % (13-45); MEAN CORPUSCULAR HEMOGLOBIN 29.3 pg (27.0-33.4); MEAN CORPUSCULAR HGB CONC 33.9 g/dL (32.0-36.0); MEAN CORPUSCULAR VOLUME 87 fl (80-97); MONOCYTES % (AUTO) 6.9 % (3-13); PLATELET COUNT 252 10^3/uL (150-450); RED BLOOD COUNT 4.61 10^6/uL (3.72-5.28); RED CELL DISTRIBUTION WIDTH 13.4 % (11.5-14.0); SEGMENTED NEUTROPHILS % (AUTO) 63.4 % (42-78); TOTAL CELLS COUNTED % (AUTO) 100 %; WHITE BLOOD COUNT 6.5 10^3/uL (4.0-10.5)
[2018-02-12 11:53] LABS: INTERNATIONAL RATION (INR) 0.95; PROTHROMBIN TIME 13.2 SEC (11.4-15.4)
[2018-02-12 11:54] LABS: PARTIAL THROMBOPLASTIN TIME 31.6 SEC (23.5-35.8)
[2018-02-12 12:02] LABS: ALANINE AMINOTRANSFERASE 60 U/L (9-52); ALBUMIN 4.4 g/dL (3.5-5.0); ALKALINE PHOSPHATASE 67 U/L (38-126); ANION GAP 16 (5-19); ASPARTATE AMINO TRANSFERASE 74 U/L (14-36); BILIRUBIN,DIRECT 0.1 mg/dL (0.0-0.4); BILIRUBIN,TOTAL 0.5 mg/dL (0.2-1.3); BLOOD UREA NITROGEN 7 mg/dL (7-20); CALCIUM 9.5 mg/dL (8.4-10.2); CARBON DIOXIDE 24 mmol/L (22-30); CHLORIDE 102 mmol/L (98-107); GLUCOSE 146 mg/dL (75-110); POTASSIUM 3.9 mmol/L (3.6-5.0); SODIUM 141.8 mmol/L (137-145); TOTAL PROTEIN 6.9 g/dL (6.3-8.2)
--- NOTE | 2018-02-12 12:21 | ER Document Report ---
ED GI Bleed / Rectal Pain - General Chief Complaint: Rectal Bleeding Stated Complaint: ANAL BLEEDING Time Seen by Provider: 02/12/18 10:52 Notes: 47-year-old female presents to the ER complaining of some rectal bleeding and pain. The patient stated she was in the shower when she felt something rupture around her anus and then bleeding started happening. There was a dark clot that came out and then followed by bright red blood. The patient stated she has not had this before she noted she has had a colonoscopy a month ago and has had no issues but has had some mild rectal pain since. The patient denies any rectal intercourse or any other kind of instrumentation of the rectum. Patient denies chest pain denies shortness of breath denies abdominal pain. Eyes fever chills denies headache lightheadedness or dizziness. The patient also states she has been having some mild dysuria also I think she may have a UTI TRAVEL OUTSIDE OF THE [place] IN LAST 30 DAYS: No - Related Data Allergies/Adverse Reactions: nitroglycerin [Nitroglycerin] Allergy (Intermediate, Verified 02/12/18 11:02) promethazine HCl [From Phenergan] Allergy (Intermediate, Verified 02/12/18 11:02 ) pseudoephedrine HCl [From Sudafed] Allergy (Intermediate, Verified 02/12/18 11: 02) Past Medical History - Social History Smoking Status: Former Smoker Chew tobacco use (# tins/day): No Frequency of alcohol use: Rare Drug Abuse: None Family History: Reviewed & Not Pertinent Patient has suicidal ideation: No Patient has homicidal ideation: No - Past Medical History Cardiac Medical History: Reports: Hx Hypercholesterolemia Endocrine Medical History: Reports: Hx Diabetes Mellitus Type 2 Renal/ Medical History: Denies: Hx Peritoneal Dialysis Malignancy Medical History: Reports: Hx Cervical Cancer GI Medical History: Reports: Hx Gastroesophageal Reflux Disease, Hx Irritable Bowel. Denies: Hx Crohn's Disease, Hx Diverticulitis, Hx Ulcerative Colitis Psychiatric Medical History: Reports: Hx Depression Past Surgical History: Reports: Hx Bowel Surgery - Hernia repair, endoscopic procedures to diagnose endometriosis, Hx Cholecystectomy, Hx Genitourinary Surgery, Hx Gynecologic Surgery - cervical cancer, cystocele, ruptured ovarian cyst, Hx Hysterectomy, Hx Orthopedic Surgery - spinal fusion, Hx Tubal Ligation - Immunizations Immunizations up to date: Yes Hx Diphtheria, Pertussis, Tetanus Vaccination: Yes Review of Systems - Review of Systems Constitutional: denies: Chills, Fever Cardiovascular: denies: Chest pain, Orthopnea, Dyspnea Gastrointestinal: Rectal bleeding Genitourinary: Dysuria. denies: Hematuria Musculoskeletal: denies: Back pain Skin: No symptoms reported Hematologic/Lymphatic: denies: Anemia, Easy bleeding Neurological/Psychological: denies: Sensory change, Weakness, Lost consciousness , Headaches, Numbness -: Yes All other systems reviewed and negative Physical Exam - Vital signs Vitals: Temp Pulse Resp BP Pulse Ox 98.0 F 125 H 20 161/87 H 100 02/12/18 10:43 02/12/18 10:43 02/12/18 10:43 02/12/18 10:43 02/12/18 10:43 - Notes Notes: GENERAL_APPEARANCE: well_nourished, alert, cooperative, no_acute_distress, no_ obvious_discomfort. VITALS: reviewed, see vital signs table. HEAD: no_swelling\tenderness on the head. EYES: PERRL, EOMI, conjunctiva_clear. NOSE: no_nasal_discharge. MOUTH: (-)decreased moisture. THROAT: no_tonsilar_inflammation, no_airway_obstruction. no_lymphadenopathy NECK: supple, no_neck_tenderness, (-)thyromegaly. BACK: no_back_tenderness. CHEST_WALL: no_chest_tenderness. RECTAL: There is an external hemorrhoid that was thrombosed at the 9 o'clock position as the patient laid on her right side most of the clot is expressed there is a little bit left. I tried to express this initially but the patient did not tolerate this well it should come out on its own ABDOMEN: normal_BS, soft, no_abd_tenderness, (-)guarding, (-)rebound, no_ organomegaly, no_abd_masses. EXTREMITIES: strength 5/5 in all_extremities, good pulses in all_extremities, no_swelling\tenderness in the extremities, no_edema. SKIN: warm, dry, good_color, no_rash. MENTAL_STATUS: speech_clear, oriented_X_3, anxious _affect, responds_ appropriately to questions. NEURO: Neg Motor or Sensory Deficits on exam, CN 2-12 intact, DTR 2+ symmetric x 4, No cerbellar signs Course - Re-evaluation Re-evalutation: 02/12/18 12:20 47-year-old female who presents with a thrombosed external hemorrhoid. The hemorrhoid is open and bleeding. There is a small amount of clot left in the hemorrhoids I tried to express it but the patient did not tolerate it. I will have the patient use sitz baths and Tucks pads. I will prescribe Anusol rectal suppositories. The patient also complains of mild dysuria we will check a urine triage placed the regular GI bleeding order set. Patient is not sniffily anemic or any other problems. Her abdomen is soft and supple on exam. She sees Dr. Juarez GI doctor and I advised her to follow back up with him so that he can evaluate the hemorrhoid. 02/12/18 13:02 There is no anemia labs look good urine had some positive nitrites. Going to place the patient on cephalexin for prophylaxis for the ruptured hemorrhoid. This should cover any kind of urinary symptoms. Patient otherwise is doing well and will be discharged home. Advise follow-up with Dr. Juarez - Vital Signs Vital signs: Temp Pulse Resp BP Pulse Ox 98.0 F 125 H 20 161/87 H 100 02/12/18 10:43 02/12/18 10:43 02/12/18 10:43 02/12/18 10:43 02/12/18 10:43 - Laboratory Result Diagrams: 02/12/18 11:25 02/12/18 11:25 Laboratory results interpreted by me: 02/12/18 02/12/18 11:25 12:23 Glucose 146 H AST 74 H ALT 60 H Urine Nitrite POSITIVE H Urine Urobilinogen 2.0 H Discharge - Discharge Clinical Impression: Thrombosed external hemorrhoid Condition: Good Disposition: HOME, SELF-CARE Instructions: Incision of Thrombosed Hemorrhoids ([facility]) Additional Instructions: Warm sits baths and Tucks pads [id number]. Use prescribe suppository twice a day. Follow-up with Dr. Juarez for hemorrhoid recheck. Prescriptions: Hydrocortisone Acetate [Anusol Hc 25 mg Supp.rect] [address] BID #14 supp.rect
[2018-02-12 12:52] LABS: APPEARANCE,URINE CLEAR; BILIRUBIN,URINE NEGATIVE (NEGATIVE); COLOR,URINE AMBER; GLUCOSE, URINE NEGATIVE (NEGATIVE); KETONES,URINE NEGATIVE (NEGATIVE); LEUKOCYTE ESTERASE,URINE NEGATIVE (NEGATIVE); NITRITE,URINE POSITIVE (NEGATIVE); PROTEIN,URINE NEGATIVE (NEGATIVE); URINE SPECIFIC GRAVITY 1.004
[2018-02-12 13:58] VITALS: BP 127/76
== END 2018-02-12 13:20 | disposition home or self-care (01) ==
LOC: ER 10:38
DX: K64.5 Perianal venous thrombosis (principal); K62.5 Hemorrhage of anus and rectum; E78.00 Pure hypercholesterolemia, unspecified; E11.9 Type 2 diabetes mellitus without complications; Z90.49 Acquired absence of other specified parts of digestive tract; Z98.51 Tubal ligation status
CPT/HCPCS: 99283; 86900; 86901; 36415; 86850; 85025; 85610; 85730; 80053; 81001; J7030